=== PATIENT | male | born 1955 | race Caucasian/White ===

== ENCOUNTER → 2017-04-08 | Outpatient (CLI) | payer OTHER | LOC: FIMAGING 07:35 | PROVIDERS: ATTEND Radiology Diagnostic Radiology | DX: I83.893 Varicose veins of bilateral lower extremities with other complications (principal); I80.03 Phlebitis and thrombophlebitis of superficial vessels of lower extremities, bilateral; Z79.01 Long term (current) use of anticoagulants ==

== ENCOUNTER 2017-06-12 07:34 | Day surgery (SDC) | payer OTHER ==
[2017-06-12] MEDS ORDERED: NS 1,000 ML IV ONE (07:48)
[2017-06-12] MEDS ORDERED: fentaNYL 100 MCG/2 ML INJ IVP PRN (07:48)
[2017-06-12] MEDS ORDERED: ceFAZolin 2 GM/SWFI 2 GM/20 ML SYR IVP ONE (07:48)
[2017-06-12] MEDS ORDERED: GLUCAGON HCL 1 MG VIAL IVP PRN (07:48)
[2017-06-12] MEDS ORDERED: ALTEPLASE 2 MG VIAL IVP PRN (07:48)
[2017-06-12] MEDS ORDERED: ONDANSETRON 4 MG/2 ML VIAL IVP ONE (07:48)
[2017-06-12] MEDS ORDERED: MIDAZOLAM 2 MG/2 ML VIAL IVP PRN (07:48)
[2017-06-12] MEDS ORDERED: HEPARIN 10,000 UNIT/10 ML MDV IVP PRN (07:48)
[2017-06-12] MEDS ORDERED: NALOXONE HCL 0.4 MG/ML INJ IVP PRN (07:48)
[2017-06-12] MEDS ORDERED: PROTAMINE SULFATE 50 MG/5 ML VIAL IVP PRN (07:48)
[2017-06-12] MEDS ORDERED: MEPERIDINE 25 MG/ML SYR IVP PRN (07:48)
[2017-06-12] MEDS ORDERED: FLUMAZENIL 0.5 MG/5 ML MDV IVP PRN (07:48)
[2017-06-12] MEDS ORDERED: SODIUM TETRADECYL SULFATE 3% 2 ML VIAL IV ONE (07:53)
[2017-06-12] MEDS ORDERED: LIDO/EPI 1% **for epidural** 30 ML SDV ONE (07:53)
[2017-06-12 08:21] VITALS: TEMP 98.8
--- NOTE | 2017-06-12 09:04 | PDPROPOC ---
Sedation Plan of Care Sedation Plan of Care: vital signs stable, mental status noted, patient educated of risks, benefits, alternatives, patient can tolerate sedation ASA Classification: ASA 1 Planned drugs: fentanyl, midazolam Mallampati Score: Class 1 Mallampati Reference Image: Patient passed 3-3-2 rule?: Yes
--- NOTE | 2017-06-12 09:05 | PDGENHP ---
History & Physical Chief Complaint: LLE VARICOSE VEINS History of Present Illness: PREVIOUS GSV CLOT. BOTH GSV ARE OPEN AND REFLUXING. SYMPTOMATIC VARICOSE VEINS Pertinent Past, Social, Family History: N/A Relevant Physical Exam: PARTIALLY OPEN GSV WITH REFLUX Cardiorespiratory Assessment: CTA, RRR
[2017-06-12] MEDS ORDERED: fentaNYL 100 MCG/2 ML INJ ONE (09:58)
[2017-06-12] MEDS ORDERED: MIDAZOLAM 2 MG/2 ML VIAL ONE (09:58)
[2017-06-12] MEDS ORDERED: HYDROCODONE/APAP 5/325 TAB PO PRN ×2 (10:43→10:44)
[2017-06-12] MEDS ORDERED: ONDANSETRON DISINTEGRATING 4 MG TAB PO PRN (10:43)
[2017-06-12] MEDS ORDERED: IBUPROFEN 200 MG TAB PO ONE ×2 (10:43→10:44)
[2017-06-12] MEDS ORDERED: ONDANSETRON 4 MG/2 ML VIAL IVP PRN (10:43)
[2017-06-12] MEDS ORDERED: NS 1,000 ML IV SCH ×2 (10:45)
--- NOTE | 2017-06-12 10:53 | PDRADPN ---
Radiology Procedure Note Date of Procedure: 06/12/17 Radiologist: Liz Vivas Anesthesia: IV Sedation (fentanyl and versed) Pre-op Diagnosis: LLE varicose veins Post-op Diagnosis: same Indication: previous clotting. symptomatic varicose veins Procedure: GSV laser, varicose vein microphlebectomy and schlerotherapy Finding(s): GSV ablated. Segments of veins removed. Inf/Abcess present in the surg proc area at time of surgery?: No EBL: Minimal Complications: None
[2017-06-12 11:06] VITALS: PULSE 68; RESP 14
[2017-06-12 14:04] VITALS: BP 114/76; O2SAT 96
== END 2017-06-12 14:25 | disposition home or self-care (01) ==
LOC: FIMAGING 07:34
PROVIDERS: ATTEND Radiology Diagnostic Radiology
PROC: 06BY3ZZ Excision of Lower Vein, Percutaneous Approach (ICD-10-PCS; principal; 2017-06-12 10:57)
PROC: 065Q3ZZ Destruction of Left Saphenous Vein, Percutaneous Approach (ICD-10-PCS; principal; 2017-06-12 10:57)
PROC: 3E033TZ Introduction of Destructive Agent into Peripheral Vein, Percutaneous Approach (ICD-10-PCS; principal; 2017-06-12 10:57)
DX: I83.892 Varicose veins of left lower extremity with other complications (principal)
CPT/HCPCS: J0690; J2250; J2310; J3010

== ENCOUNTER 2017-06-14 07:19 | Day surgery (SDC) | payer OTHER ==
[2017-06-14] MEDS ORDERED: GLUCAGON HCL 1 MG VIAL IVP PRN (07:23)
[2017-06-14] MEDS ORDERED: PROTAMINE SULFATE 50 MG/5 ML VIAL IVP PRN (07:23)
[2017-06-14] MEDS ORDERED: ONDANSETRON 4 MG/2 ML VIAL IVP ONE (07:23)
[2017-06-14] MEDS ORDERED: MEPERIDINE 25 MG/ML SYR IVP PRN (07:23)
[2017-06-14] MEDS ORDERED: NALOXONE HCL 0.4 MG/ML INJ IVP PRN (07:23)
[2017-06-14] MEDS ORDERED: MIDAZOLAM 2 MG/2 ML VIAL IVP PRN (07:23)
[2017-06-14] MEDS ORDERED: fentaNYL 100 MCG/2 ML INJ IVP PRN (07:23)
[2017-06-14] MEDS ORDERED: FLUMAZENIL 0.5 MG/5 ML MDV IVP PRN (07:23)
[2017-06-14] MEDS ORDERED: NS 1,000 ML IV ONE (07:23)
[2017-06-14 08:17] VITALS: PULSE 74; TEMP 98.8
[2017-06-14] MEDS ORDERED: LIDO/EPI 1% **for epidural** 30 ML SDV ONE (08:21)
[2017-06-14] MEDS ORDERED: SODIUM TETRADECYL SULFATE 3% 2 ML VIAL IV ONE (08:21)
[2017-06-14] MEDS ORDERED: NALOXONE HCL 0.4 MG/ML INJ ONE (08:28)
[2017-06-14] MEDS ORDERED: MIDAZOLAM 2 MG/2 ML VIAL ONE ×2 (08:29→09:46)
[2017-06-14] MEDS ORDERED: fentaNYL 100 MCG/2 ML INJ ONE (08:29)
[2017-06-14] MEDS ORDERED: FLUMAZENIL 0.5 MG/5 ML MDV IVP ONE (08:29)
--- NOTE | 2017-06-14 09:17 | PDPROPOC ---
Sedation Plan of Care Sedation Plan of Care: vital signs stable, mental status noted, patient educated of risks, benefits, alternatives, patient can tolerate sedation ASA Classification: ASA 1 Planned drugs: fentanyl, midazolam Mallampati Score: Class 2 Mallampati Reference Image:
--- NOTE | 2017-06-14 09:20 | PDGENHP ---
History & Physical Chief Complaint: RLE varicose veins History of Present Illness: post treatment on LT two days ago. Doing very well. No phlebectomy needed for RT leg. Pertinent Past, Social, Family History: N/A Relevant Physical Exam: no bruising on LT. No hemotoma or trapped blood. Cardiorespiratory Assessment: RRR. CTA
--- NOTE | 2017-06-14 11:42 | PDRADPN ---
Radiology Procedure Note Date of Procedure: 06/14/17 Radiologist: Liz Vivas Anesthesia: IV Sedation (fentanyl and versed) Pre-op Diagnosis: RLE varicose veins Post-op Diagnosis: same Indication: syptomatic varicose veins Procedure: RLE GSV laser and multivessel schlerotherapy Finding(s): please see report Inf/Abcess present in the surg proc area at time of surgery?: No EBL: Minimal Complications: none
[2017-06-14 11:50] VITALS: BP 127/69; RESP 14; O2SAT 95
== END 2017-06-14 11:42 | disposition home or self-care (01) ==
LOC: FIMAGING 07:19
PROVIDERS: ATTEND Radiology Diagnostic Radiology
DX: I83.891 Varicose veins of right lower extremity with other complications (principal)
CPT/HCPCS: 36471; 36478; 99152; 99153; C1769; J2250; J2310; J3010

== ENCOUNTER → 2017-09-10 | Day surgery (SDC) | payer OTHER ==
[~2017-09-10] MED LIST: SODIUM TETRADECYL SULFATE 3% 2 ML VIAL IV ONE
== END | disposition home or self-care (01) ==
LOC: FIMAGING 12:29
PROVIDERS: ATTEND Radiology Diagnostic Radiology
PROC: 3E033TZ Introduction of Destructive Agent into Peripheral Vein, Percutaneous Approach (ICD-10-PCS; principal; 2017-09-10)
DX: I83.93 Asymptomatic varicose veins of bilateral lower extremities (principal)

== ENCOUNTER → 2018-09-10 | Outpatient (CLI) | payer OTHER | LOC: FIMAGING 07:23 | PROVIDERS: ATTEND Radiology Diagnostic Radiology | DX: I83.893 Varicose veins of bilateral lower extremities with other complications (principal); I83.813 Varicose veins of bilateral lower extremities with pain ==